=== PATIENT | female | born 1935 | race Caucasian/White ===

== ENCOUNTER 2019-01-03 14:32 | Emergency (ER) | payer MEDICARE, OTHER ==
[~2019-01-03] VITALS: Ht 167.6 cm; Wt 69.2 kg
[2019-01-03 14:39] VITALS: BP 155/71; PULSE 78; RESP 20; Ht 167.6 cm; Wt 69.2 kg
[2019-01-03] MEDS ORDERED: BACITRACIN 0.9 GM OINT TOP ONE (17:00)
[2019-01-03] MEDS ORDERED: DIPHTH/TET/ACEL PERTUSS (ADULT) 0.5 ML VIAL IM* ONE (17:00)
[2019-01-03] MEDS ORDERED: BACITUD TOP (17:11)
--- NOTE | 2019-01-03 17:59 | ERD ---
ER Documentation Chief Complaint Chief Complaint complains of toe pain after a stubbed toe today HPI 83-year-old female patient with a past medical history of hypertension, hyperlipidemia, lupus, thyroid problems presents to the ED after opening a door onto her right toes. States that it was a heavy door and when she opened it, the metal portion scraped the skin off of her cane and third toes. She rates her pain a 9 out of 10. Patient reports that she still able to move her toes without any difficulty. Denies any fever, chills, nausea, vomiting, diarrhea, loss sensation loss of range of motion, increased redness or swelling. ROS All systems reviewed and are negative except as per history of present illness. Medications Home Meds Active Scripts Bacitracin* (Bacitracin Oint (UD)*) 1 Applic Oint, 1 APPLIC TOP ONCE, #14 PKT APPLY TO Prov:SENDY SPIVEY PA-C 01/03/19 Allergies Allergies: Coded Allergies: Penicillins (Verified Allergy, Mild, Rash, 01/03/19) Sulfa (Sulfonamide Antibiotics) (Verified Allergy, Mild, redness rash, 01/03/19) ciprofloxacin (Verified Allergy, Unknown, rash, 01/03/19) PMhx/Soc History of Surgery: No Anesthesia Reaction: No Hx Neurological Disorder: No Hx Respiratory Disorders: No Hx Cardiac Disorders: Yes (HTN) Hx Psychiatric Problems: No Hx Miscellaneous Medical Probl: Yes (LUPUS, HIGH CHOLESTEROL) Hx Alcohol Use: No Hx Substance Use: No Hx Tobacco Use: No Smoking Status: Never smoker FmHx Family History: No diabetes, No coronary disease Physical Exam Vitals Vital Signs Date Temp Pulse Resp B/P (MAP) Pulse Ox O2 O2 Flow FiO2 Time Delivery Rate 01/03/19 97.6 78 20 155/71 97 14:39 (99) Physical Exam Const: Xro-[id number]-[id number], well-nourished. In no acute distress. Head: Atraumatic, normocephalic Eyes: Normal Conjunctiva without injection ENT: Normal external ear, nose and mouth. Neck: Full range of motion. No meningismus. Resp: Clear to auscultation bilaterally. No wheezing, rhonchi, rales, or crackles. No accessory muscle use. No retractions. Cardio: Regular rate and rhythm, no murmurs Skin: No petechiae or rashes Back: No midline tenderness. No CVA tenderness. Ext: No cyanosis, or edema. Cap refill less than 2 seconds. Distal pulses intact bilaterally. Partial skin avulsion noted of the dorsal aspect of patient's second and third patient's toes. Edema noted. No erythema. Minimal bleeding noted. Full range of motion of the IP, MTP joints bilaterally. Patient was ambulating without any difficulty. Neur: Awake and alert. Normal gait and coordination. Muscle strength 5/5. Sensation intact bilaterally. Psych: Normal Mood and Affect Results 24 hrs Current Medications Medications Dose Sig/Jake Start Time Status Last (Trade) Ordered Route PRN Stop Time Admin Dose Reason Admin Diphtheria/ 0.5 ml ONCE ONCE 01/03/19 DC 01/03/19 Tetanus/Acell IM* 17:00 16:44 Pertussis 01/03/19 17:01 (Adacel) Bacitracin 1 applic ONCE ONCE 01/03/19 DC 01/03/19 (Bacitracin TOP 17:00 16:43 Oint (Ud)) 01/03/19 17:01 Procedures/MDM 83-year-old female patient with a past medical history of hypertension, hyperlipidemia, lupus, thyroid problems presents to ED complaining of right toe pain that started earlier today when she stepped her toe. Patient is afebrile and nontoxic-appearing. Patient has a blood pressure 155/71. Blood Pressure Assessment: Patient's blood pressure was elevated (>120/80) but appears stable without evidence of hypertension emergency or urgency. The patient was counseled about the risks of hypertension and urged to pursue outpatient monitoring and therapy within a week with their primary care physician. Patient is placed in a clean dressing after wound irrigation was performed with normal saline. Clean dressing and bacitracin was applied. Patient ambulated without difficulty and did not need any crutches. No indication for a laceration repair. Discussed obtaining a x-ray, patient denied wanting an x-ray at this time. Splint Assessment: Neurovascularly intact pre and post splint placement with good fit. Patient's extremity symptoms have stabilized while they have been evaluated in the department and are appropriate for outpatient follow up. No evidence of fractures, dislocations, compartment syndrome, neurologic injury, vascular injury, open joint, open fracture, tendon laceration, septic arthritis, osteomyelitis, DVT, foreign body, or other emergent conditions. Diagnosis: Injury of toes Discharge medications: Bacitracin Follow up with primary care physician in 1-2 days. Instructed patient to return to the ED sooner for any worsening symptoms. Patient's questions were answered. Patient is hemodynamically stable. Patient understood and agreed with discharge plan. Patient discharged stable. Disclaimer: Inadvertent spelling and grammatical errors are likely due to EHR/dictation software use and do not reflect on the overall quality of patient care. Also, please note that the electronic time recorded on this note does not necessarily reflect the actual time of the patient encounter. Departure Diagnosis: Primary Impression: Injury of toe Encounter type: initial encounter Laterality: right Qualified Codes: S99 .921A - Unspecified injury of right foot, initial encounter Condition: Stable Patient Instructions: Contusion, Foot, Skin Avulsion Referrals: [facility] YOU HAVE RECEIVED A MEDICAL SCREENING EXAM AND THE RESULTS INDICATE THAT YOU DO NOT HAVE A CONDITION THAT REQUIRES URGENT TREATMENT IN THE EMERGENCY DEPARTMENT. FURTHER EVALUATION AND TREATMENT OF YOUR CONDITION CAN WAIT UNTIL YOU ARE SEEN IN YOUR DOCTORS OFFICE WITHIN THE NEXT 1-2 DAYS. IT IS YOUR RESPONSIBILITY TO MAKE AN APPOINTMENT FOR FOLOW-UP CARE. IF YOU HAVE A PRIMARY DOCTOR --you should call your primary doctor and schedule an appointment IF YOU DO NOT HAVE A PRIMARY DOCTOR YOU CAN CALL OUR PHYSICIAN REFERRAL HOTLINE AT IF YOU CAN NOT AFFORD TO SEE A PHYSICIAN YOU CAN CHOSE FROM THE FOLLOWING [facility] [address] [facility]. [facility] [address] [facility]. [facility] [address] [facility] [facility] [address] [facility] [facility] [address] [facility]. [facility]. [address] [facility]. [facility] YOU HAVE RECEIVED A MEDICAL SCREENING EXAM AND THE RESULTS INDICATE THAT YOU DO NOT HAVE A CONDITION THAT REQUIRES URGENT TREATMENT IN THE EMERGENCY DEPARTMENT. FURTHER EVALUATION AND TREATMENT OF YOUR CONDITION CAN WAIT UNTIL YOU ARE SEEN IN YOUR DOCTORS OFFICE WITHIN THE NEXT 1-2 DAYS. IT IS YOUR RESPONSIBILITY TO MAKE AN APPOINTMENT FOR FOLOW-UP CARE. IF YOU HAVE A PRIMARY DOCTOR --you should call your primary doctor and schedule and appointment IF YOU DO NOT HAVE A PRIMARY DOCTOR YOU CAN CALL OUR PHYSICIAN REFERRAL HOTLINE AT . IF YOU CAN NOT AFFORD TO SEE A PHYSICIAN YOU CAN CHOSE FROM THE FOLLOWING [facility] INSTITUTIONS: [facility] [address] [place] [address] [facility] [address] [place] [address] [facility] [address] [place] [address] [facility] Additional Instructions: Call your primary care doctor TOMORROW for an appointment during the next 2-3 days.See the doctor sooner or return here if your condition worsens before your appointment time. Follow up in 2 days in your clinic for wound check. SENDY SPIVEY PA-C Jan 03, 2019 17:59
== END 2019-01-03 17:18 | disposition home or self-care (01) ==
LOC: FTE 14:32
DX: S91.104A Unspecified open wound of right lesser toe(s) without damage to nail, initial encounter (principal); I10 Essential (primary) hypertension; W26.8XXA Contact with other sharp object(s), not elsewhere classified, initial encounter; Y92.9 Unspecified place or not applicable; Z23 Encounter for immunization
CPT/HCPCS: 90471; 90715